=== PATIENT | female | born 1955 | race Two or more races ===

== ENCOUNTER 2023-11-12 14:27 | Inpatient (IN) | payer OTHER ==
[~2023-11-12] VITALS: Ht 160 cm; Wt 81.6 kg
[~2023-11-12 14:27] MED LIST: CIPRO500 MG PO; IRBESARTAN300 MG PO; LEVSIN/SL0.125 MG SL; METRONIDAZOLE500 MG PO; OMEPRAZOLE40 MG PO; ONDANSETRON ODT4 MG SL; ROSUVASTATIN CA10 MG PO; ZIAC
[2023-11-12 17:37] LABS: HEMOGLOBIN 13.8 g/dL (12.0-15.00); MEAN CORPUSCULAR HEMOGLOBIN 32.2 pg (27.00-32.0); MEAN CORPUSCULAR HGB CONC 33.6 g/dl (32.0-36.0); PLATELET COUNT 315 K/uL (150-450); RED BLOOD COUNT 4.27 M/uL (4.00-6.00); RED CELL DISTRIBUTION WIDTH 13.6 % (11.5-14.5)
[2023-11-12 18:04] LABS: CALCIUM 9.6 mg/dL (8.5-10.1); CREATININE SERUM 0.8 mg/dL (0.55-1.02); GFR 71.12; POTASSIUM 4.39 mEq/L (3.5-5.1)
[2023-11-12 18:16] LABS: ABG PH 7.425 (7.35-7.45); ABG PO2 69.5 mmHg (80-100); BASE EXCESS 2.3 mmol/l; Tco2 28.2 mmol/l; allen test SATISFACTORY; o2 21 %; puncture site RADIAL LEFT
[2023-11-12 18:17] LABS: SaO2 94.2 %
[2023-11-12] MEDS ORDERED: ENOXAPARIN SODIUM 40 MG/0.4 ML SYRINGE SUBCUTANEO SCH (22:42)
[2023-11-12] MEDS ORDERED: ACETAMINOPHEN 500 MG GEL..CAP PO PRN (22:45)
[2023-11-12] MEDS ORDERED: 0.9 % SODIUM CHLORIDE 1,000 ML IV SCH (22:45)
[2023-11-13] MEDS ORDERED: LEVALBUTEROL HCL 1.25 MG/3 ML SOLUTION IH SCH (01:00)
[2023-11-13] MEDS ORDERED: IPRATROPIUM BROMIDE 0.5 MG/2.5 ML AMPUL.NEB IH SCH ×2 (01:00)
[2023-11-13] MEDS ORDERED: DIPHENHYDRAMINE HCL 50 MG/ML VIAL 1ML IV SCH (02:15)
[2023-11-13] MEDS ORDERED: METHYLPREDNISOLONE SOD SUCC 125 MG VIAL IV ONE (02:15)
[2023-11-13 02:39] LABS: D DIMER 0.88 MG/L; PARTIAL THROMBOPLASTIN TIME 25.6 SECONDS (22.0-34.0); PROTHROMBIN TIME 10.9 SECONDS (9.0-11.5)
[2023-11-13 06:20] VITALS: BP 145/82; O2SAT 98
[2023-11-13 07:20] VITALS: BP 151/83; O2SAT 94
[2023-11-13] MEDS ORDERED: IRBESARTAN 300 MG TABLET PO SCH (09:00)
[2023-11-13] MEDS ORDERED: FAMOTIDINE/PF 20 MG in 0.9 % SODIUM CHLORIDE 8 ML IV PUSH SCH (09:00)
[2023-11-13 12:48] LABS: PH,URINE 6.5 (5.0-8.0); URINE APPEARANCE Clear; URINE BILIRRUBIN Negative (NEGATIVE); URINE BLOOD Negative; URINE COLOR Yellow; URINE KETONE 15 (NEGATIVE); URINE LEUKOCYTE Small; URINE NITRATE Negative; URINE PROTEIN Negative (NEGATIVE); URINE UROBILINOGEN 0.2 E.U./dl
[2023-11-13 12:49] LABS: URINE BACTERIA 90.6 uL (0.0-1933); URINE EPITHELIAL CELLS 4.4 uL (0.0-38.8); URINE RBC 17.5 uL (0.0-20.8); URINE WBC 23.9 uL (0.0-23.2)
[2023-11-13 12:56] LABS: URINE GLUCOSE 100 MG/DL (NEGATIVE)
[2023-11-13 17:12] VITALS: BP 149/66
[2023-11-14 02:21] VITALS: BP 137/72
[2023-11-14 08:18] VITALS: BP 129/69; O2SAT 96
[2023-11-14] MEDS ORDERED: levoFLOXacin IN DEXTROSE 5 % 150 ML IV SCH (11:27)
[2023-11-14] MEDS ORDERED: METHYLPREDNISOLONE SOD SUCC 40 MG VIAL IV SCH (11:30)
[2023-11-14] MEDS ORDERED: ALBUTEROL SULFATE 3 ML/2.5 MG AMPUL.NEB IH SCH (13:00)
[2023-11-14] MEDS ORDERED: BUDESONIDE0.5 MG/2 M IH (14:56)
[2023-11-14] MEDS ORDERED: IPRATROPIU0.2 MG/1 M IH (14:57)
[2023-11-14] MEDS ORDERED: GILTUSS COUGH-118 M1 PO (15:02)
== END 2023-11-14 18:50 | disposition home or self-care (01) | DRG 205 ==
LOC: ER 14:28 → MEDI 22:45
PROVIDERS: General Practice; ADMIT Internal Medicine; ATTEND Internal Medicine
PROC: BW24ZZZ Computerized Tomography (CT Scan) of Chest and Abdomen (ICD-10-PCS; principal; 2023-11-12)
PROC: B24BYZZ Ultrasonography of Heart with Aorta using Other Contrast (ICD-10-PCS; 2023-11-12)
PROC: B54DZZZ Ultrasonography of Bilateral Lower Extremity Veins (ICD-10-PCS; 2023-11-12)
DX: R09.02 Hypoxemia (principal); I26.99 Other pulmonary embolism without acute cor pulmonale; J98.11 Atelectasis; E66.9 Obesity, unspecified; I10 Essential (primary) hypertension